=== PATIENT | male | born 1975 | race Caucasian/White ===

== ENCOUNTER 2024-09-24 02:41 | Emergency (ER) | payer SELFPAY ==
[2024-09-24 02:46] VITALS: BP 130/90; PULSE 90; RESP 16; TEMP 36.7; O2SAT 95; BMI 22.7
[2024-09-24 02:49] VITALS: BP 130/90; PULSE 104; RESP 18; O2SAT 98
--- NOTE | 2024-09-24 03:02 | W.ED.EXTPRO ---
HPI - Extremity Problem General: Chief complaint: Extremity Injury, Upper Stated complaint: Left Hand Fishing Hook Time Seen by Provider: 09/24/24 02:46 History of Present Illness: Patient comes in with a fishhook in his left distal thumb and left distal forefinger. States that he had a trouble hook that got embedded in both fingers. He cut the trouble hook leaving part of the hook in both digits. On physical exam the hooks are tight and deep. I do not think the string method will work in this situation. He states the hooks were brand-new and clean. He does not want a tetanus shot and he does not want antibiotics. I was able to push the hook through using local anesthetic at the site of the injuries. The patient tolerated the procedure well. We cleaned the wounds thoroughly with soap and water afterwards. We talked about symptoms that should prompt immediate return to the emergency department. Will discharge at this time with precautions to return for worsening or changing symptoms. Differential diagnosis: Acute fishhook injury finger, acute tendon injury, acute vascular injury Related Data Allergies Allergy/AdvReac Type Severity Reaction Status Date / Time No Known Allergies Allergy Verified 09/24/24 02:45 Review of Systems Skin/Breast: Reports: other (Embedded fishhook in the left distal thumb, and left distal pointer finger) Physical Exam Extremity: OTHER: [place] embedded in the left distal thumb, and left distal pointer finger Procedures Foreign Body Removal Site: left and hand Description of foreign body: fish hook Sedation/Analgesia: none Technique: removal with forceps Confirmed by:: direct visualization Complications: none Post-procedure exam: awake, alert Neurovascular: normal distal pulse Course Vital Signs: Vital signs: Vital Signs Temperature 98.0 F 09/24/24 02:46 Pulse Rate 104 H 09/24/24 02:49 Respiratory Rate 18 09/24/24 02:49 Blood Pressure 130/90 09/24/24 02:49 Pulse Oximetry 98 09/24/24 02:49 Oxygen Delivery Me thod Room Air 09/24/24 02:46 MDM - Extremity (Nontraumatic) Medical Decision Making na No radiology studies performed this visit Discharge Plan Discharge Patient Disposition: Home Clinical Impression: [place] injury to finger Condition: Stable Discharge Orders: Discharge ED (Routine); Ordered 09/24/24 Ordered By: Rey Obregon Patient Instructions: [place] Injuries Print Language: Iraqi Coding Level of Care Code ED Pumping Supervisor for Bridgett Morris
[2024-09-24 03:03] VITALS: BP 130/74; PULSE 104; O2SAT 98
== END 2024-09-24 03:11 | disposition home or self-care (01) ==
PROVIDERS: Emergency Provider Emergency Medicine
DX: S61.241A Puncture wound with foreign body of left index finger without damage to nail, initial encounter (principal); S61.042A Puncture wound with foreign body of left thumb without damage to nail, initial encounter; W45.8XXA Other foreign body or object entering through skin, initial encounter
CPT/HCPCS: 99282; J9999